=== PATIENT | female | born 1985 | race Caucasian/White ===

== ENCOUNTER 2017-05-07 19:33 | Emergency (ER) | payer MEDICAID ==
[~2017-05-07] VITALS: Ht 165.1 cm; Wt 74.5 kg
[~2017-05-07 19:33] MED LIST: FERR-55 PO; HYDR-3498 PO; HYDR-3720 PO; IBUP-1542 PO; IBUP800T25 PO; METH750T93 PO; NO MEDS; PREN-39 PO
[2017-05-07 20:16] VITALS: Ht 165.1 cm; Wt 74.5 kg
--- NOTE | 2017-05-07 22:05 | ERA ---
ER Documentation Chief Complaint Date/Time DATE: 05/07/17 TIME: 22:05 Chief Complaint rt shoulder pain x 2 day. Denies trauma HPI 31-year-old female presented with a chief complaint of right shoulder pain 2 days. Described as dull. No radiation. Worse with movement. Denies trauma. States that her job does not require overhead activities. Denies fever, similar symptoms in the past, loss of range of motion, numbness, tingling. Has not taken any medications to relieve the symptoms. Patient has no other complaints and describes no other associated manifestations. Nursing notes have been reviewed and are consistent with history given. ROS All systems reviewed and are negative except as per history of present illness. Medications Home Meds Active Scripts Hydrocodone Bit-Acetaminophen* (Valmy*) 7.5-325 Tablet, 1 TAB PO Q4H Y for PAIN , #20 TAB Prov:JOHN PAULKKRENATA BOWMANSTOLOS A. DO 02/27/16 Methocarbamol* (Robaxin*) 750 Mg Tablet, 750 MG PO TID, #30 TAB Prov:LEKKOSAPOSTOLOS A. DO 02/27/16 Ibuprofen* (Motrin*) 800 Mg Tab, 800 MG PO Q6H Y for PAIN AND OR ELEVATED TEMP, #30 TAB Prov:LEKKOS,APOSTOLOS A. DO 02/27/16 Hydrocodone Bit-Acetaminophen* (Valmy*) 5-325 Mg Tab, 1 TAB PO Q4H Y for PAIN, # 10 TAB Prov:FARIDA WOLFE [employer] 03/28/15 Ibuprofen* (Motrin*) 600 Mg Tab, 600 MG PO Q6H Y for PAIN AND OR ELEVATED TEMP, #30 Prov:FARIDA WOLFE [employer] 03/16/15 Reported Medications Ferrous Sulfate* (Ferrous Sulfate*) 325 Mg Tablet, 325 MG PO DAILY 09/12/12 Vits W-Ca,Fe,Fa(<1MG) ( Vitamins) 1 Tab Tablet, 1 TAB PO DAILY 09/12/12 [No Meds] No Conflict Check 06/06/10 Allergies Allergies: Coded Allergies: No Known Allergies (Verified Allergy, Mild, 05/07/17) PMhx/Soc History of Surgery: No Anesthesia Reaction: No Hx Neurological Disorder: No Hx Respiratory Disorders: No Hx Cardiac Disorders: No Hx Psychiatric Problems: No Hx Miscellaneous Medical Probl: No Hx Alcohol Use: No Hx Substance Use: No Hx Tobacco Use: No Smoking Status: Never smoker Physical Exam Vitals Vital Signs Date Time Temp Pulse Resp B/P Pulse Ox O2 Delivery O2 Flow Rate FiO2 05/07/17 20:16 99.3 80 18 131/80 100 Physical Exam Const: Well-appearing overweight 31-year-old female no acute distress Head: Atraumatic Eyes: Normal Conjunctiva ENT: Normal External Ears, Nose and Mouth. Neck: Full range of motion..~ No meningismus. Resp: Clear to auscultation bilaterally Cardio: Regular rate and rhythm, no murmurs Abd: Soft, non tender, non distended. Normal bowel sounds Skin: No petechiae or rashes Back: No midline or flank tenderness Ext: Moderate tenderness over the right AC joint. Positive crossover test of the right shoulder. No signs of impingement. Full range of motion. Mild pain with resisted abduction. Neur: Awake and alert Psych: Normal Mood and Affect Results 24 hrs Current Medications Medications (Trade) Dose Ordered Sig/Ricky Route PRN Reason Start Time Stop Time Status Last Admin Dose Admin Ibuprofen (Motrin) 400 mg ONCE ONCE PO 05/07/17 22:30 05/07/17 22:31 DC 05/07/17 22:13 Procedures/MDM 31-year-old female presents with a chief complaints of right shoulder pain as described in history and physical examination. Patient denies trauma. Denies fever. X-ray of the site was taken read by the radiologist given the following impression: Unremarkable. At this time a little suspicion for systemic involvement, septic joint, bony pathology, or neurovascular compromise. Most likely diagnosis is grade 1 AC joint sprain. Have discussed rice therapy with patient. Have also recommended [id number] ibuprofen for discomfort. I have spoke with the patient regarding their condition and future management. They have verbally responded that they understand their status and treatment plan. The patients vitals are stable, and their current condition is appropriate for discharge. The patient will be given discharge instructions with return precautions. Departure Diagnosis: Primary Impression: Shoulder pain Qualified Code: M25.511 - Acute pain of right shoulder Condition: Stable Additional Instructions: Follow up with your PCP within the next 1-3 days for a more thorough evaluation and a possible referral to a specialist. Return the the emergency department immediately if symptoms worsen or change. If you have any questions regarding medications, ask your pharmacist or us before you leave. If any adverse reactions occur while taking your medications, discontinue the treatment and return to the emergency department immediately. Take your medications as directed, and complete the entire course of treatment. YASMINE HIRSCH PA-C May 07, 2017 22:05
[2017-05-07] MEDS ORDERED: IBUPROFEN 200 MG TAB PO ONE (22:30)
--- NOTE | 2017-05-07 23:45 | RADRPT ---
PROCEDURE: XR bilateral acromioclavicular joints. CLINICAL INDICATION: Bilateral acromioclavicular joint pain. TECHNIQUE: Frontal view of the right acromioclavicular joint with and without weights. Frontal view of the left acromioclavicular joint with and without weights. Total of 4 views. COMPARISON: No prior study is available for comparison. FINDINGS: The acromioclavicular joints are both intact. There is no fracture or separation. Clavicles are inta ct. IMPRESSION: 1. Normal bilateral acromioclavicular joints. RPTAT: QQ .Barrie Morales MD, MD Date Time Electronically viewed and signed by .Barrie Morales MD, on 05/07/2017 23:45 .R/
--- NOTE | 2017-05-07 23:47 | RADRPT ---
PROCEDURE: XR Right Shoulder. CLINICAL INDICATION: Right shoulder pain. TECHNIQUE: Three views. Frontal internal rotation, frontal external rotation, and oblique. COMPARISON: No prior study is available for comparison. FINDINGS: There is no fracture or dislocation. The soft tissues are normal. Articular surfaces are intact. There is no lytic or blastic lesion. There is no radiopaque foreign body. There is a benign calcified granuloma in the right mid lung zone. IMPRESSION: 1. Normal images of the right shoulder. 2. Benign calcified granuloma in the right midlung zone. RPTAT: QQ .Barrie Morales MD, Date Time Electronically viewed and signed by .Barrie Morales MD, on 05/07/2017 23:46 .R/
[2017-05-08 00:27] VITALS: BP 118/79; PULSE 72; RESP 20
== END 2017-05-08 00:28 | disposition home or self-care (01) ==
LOC: FTE 19:33
DX: M25.511 Pain in right shoulder (principal)
CPT/HCPCS: 73030; 73050; Z7502; Z7610

== ENCOUNTER 2017-07-29 22:20 | Emergency (ER) | END 2017-07-30 02:08 | disposition home or self-care (01) ==

== ENCOUNTER 2019-03-24 16:12 | Emergency (ER) | payer MEDICAID ==
[~2019-03-24] VITALS: Ht 160 cm; Wt 67.9 kg
[~2019-03-24 16:12] MED LIST changes: +CIPR500T4 PO; -IBUP800T25 PO; +IBUP800T48 PO; +PHEN-538 PO; +PRED20TA PO; +PROM5SYR2 PO
[2019-03-24 16:43] VITALS: Ht 160 cm; Wt 67.9 kg
[2019-03-24] MEDS ORDERED: KETOROLAC 30 MG INJ IM STA (19:27)
[2019-03-24] MEDS ORDERED: CEFTRIAXONE 1 GM INJ IM ONE (19:30)
[2019-03-24] MEDS ORDERED: ACETAMINOPHEN 500 MG TAB ONE (19:35)
[2019-03-24] MEDS ORDERED: ACETAMINOPHEN 325 MG TAB PO ONE (20:00)
[2019-03-24 20:15] VITALS: BP 121/64; PULSE 109; RESP 20
== END 2019-03-24 20:15 | disposition home or self-care (01) ==
LOC: E/R 16:12
DX: N12 Tubulo-interstitial nephritis, not specified as acute or chronic (principal)
CPT/HCPCS: 76856; 80053; 81001; 84702; 85025; 96372; J0696; J1885; Z7502; Z7610